=== PATIENT | female | born 1995 | race Caucasian/White ===

== ENCOUNTER 2019-10-22 07:49 | Day surgery (SDC) | payer BC, SELFPAY ==
[2019-10-22 08:33] VITALS: BP 125/70; PULSE 71; RESP 16; TEMP 36.7; O2SAT 98; BMI 27.5
[2019-10-22 08:39] LABS: Internal QC Validated? YES +Cl - CLEAR BKGD; Pregnancy, Urine Negative Negative
[2019-10-22] MEDS: Lactated Ringers 1,000 ML 100 ML IV (08:42)
[2019-10-22 08:47] LABS: Anion Gap 5 (5-15); BUN 14 mg/dL (7-18); BUN/Creat Ratio 16.8 RATIO (10-20); Calcium,Total 8.9 mg/dL (8.5-10.1); Chloride 108 mmol/L (98-107); Creatinine, Serum 0.84 mg/dL (0.55-1.02); EST Glomerular Filtration Rate 89 mL/min (>60); Est Glom Filt Rate - Afr Amer 108 mL/min (>60); Estimated Creatinine Clearance 81.68 ml/min; Glucose 92 mg/dL (74-106); Potassium 3.8 mmol/L (3.5-5.1); Sodium Level 138 mmol/L (136-145)
--- NOTE | 2019-10-22 09:10 | TONS_PTH ---
PATIENT: SIDDHARTH KRUEGER LOC: [facility] [place] U#:[id number] AGE/SX: 24/F ROOM: RE10/22/[address]: Dr. Beau Lr MD : 1995 BED: DIS: 10/22/2019 SPEC #: [id number] RECD: 10/22/19 11:49 STATUS: SHANIQUE MARTÍN #: [id number] CARRILLO: 10/22/19 09:[address]: Beau Lr DEPT: SURGICAL PATHOLOGY RECD BY: Vivek Wallis ENTERED: 10/22/19 12:35 SP TYPE: TONSILS OTHR DR: Dr. Alice Maxwell DO Tissues: A - Tonsil, NOS B - Tonsil, NOS Procedures: Surgery Specimen Level III HEADER OPERATION: Tonsillectomy PRE-OP DIAGNOSIS: Recurrent tonsillitis TISSUE SUBMITTED: A. Right tonsil, B. Left tonsil MICROSCOPIC DIAGNOSIS A. Right tonsil, tonsillectomy: Benign lymphoid follicular hyperplasia. B. Left tonsil, tonsillectomy: Benign lymphoid follicular hyperplasia. AM:juan 10/25/19 MICROSCOPIC DESCRIPTION Slides are reviewed. GROSS DESCRIPTION A. Received is one container labeled with the patient's name and designated right tonsil is one tonsil that weighs 2.4 gm. The right tonsil measures 2.5 x 1 x 0.9 cm. Shooter Helper section is submitted in 1 cassette. B. Received is one container labeled with the patient's name and designated left tonsil is one tonsil that weighs 2.4 gm. The left tonsil measures 3 x 1.5 x 1.2 cm. Shooter Helper section is submitted in one cassette./AM:juan 10/22/19 TC: 5 CPT: 84032 x2
[2019-10-22] MEDS: Bacitracin 500 UNITS/GM PACKET (09:50)
--- NOTE | 2019-10-22 09:55 | OP.PCM_ITS ---
Problem List (1) Chronic tonsillitis Status: Chronic Report of Operation Date of Procedure: 10/22/19 Pre-Operative Diagnosis: Chronic tonsillitis Post-Operative Diagnosis: Same Surgery/Procedure Performed:: Tonsillectomy Description of Surgical Findings:: Jayson is a 24-year-old female completes of chronic and recurrent sore throats with cryptic tonsillar hypertrophy. The above procedure was offered hopes of alleviation of these complaints and she was eager to proceed. The risks, alternatives, potential complications, and benefits were discussed at length and any questions answered to the patient and/or caregiver's satisfaction. Witnessed informed consent was obtained in the office, and the patient and/or caregiver was agreeable to proceed. Procedure went as follows: The patient was identified in the preoperative holding, brought to the operating room, was placed under general anesthesia and intubated. When appropriate anesthesia was obtained, the head of bed was rotated and the patient prepped and draped in usual sterile fashion. A Britney Angelo mouthgag was then placed and the patient suspended from the [place] stand. The oral cavity was examined and noted to have 2+ cryptic tonsillar hypertrophy. Beginning on the right side, the right tonsil was then grasped with a curved tenaculum and dissected from the underlying capsule with monopolar cautery. This was then sent as specimen. Similar procedure was then completed on the contralateral side. The oral and nasal cavities were then irrigated with saline solution. An NG tube was then placed to decompress the stomach. The patient was then returned to anesthesia, revived and extubated having tolerated the procedure well. Type of Anesthesia:: General Anesthesiologist: Dillan Boucher Special Medications: none Specimen's removed: bilateral tonsils Drains: none Estimated Blood Loss (mL): 0 mL Fluids Replaced: 300 mL Grafts/Implants Used: none - Complications none - Admit VTE Documentation VTE Present on Admission: No VTE Mechan Device Prophylaxis: SCD's VTE Pharm Prophylaxis ordered?: No
--- NOTE | 2019-10-22 09:58 | DCINST_ITS ---
Discharge Diet: No Restrictions Discharge Activity: Return to Normal Activity Call your doctor if your incision/area has: Sudden Increased Bleeding Call your doctor if you observe: Fever of 101 or Higher, Uncontrolled pain Allergies/Adverse Reactions: Allergies No Known Allergies Allergy (Verified 10/22/19 08:29) Medications to take at Discharge Norgestimate-Ethinyl Estradiol [Estarylla 0.25-0.035 mg Tablet] 10/22/19 Primary Care Physician: Alice Maxwell DO [Primary Care Provider] - Test Results: Test results from this visit will be discussed in further detail at your follow- up appointment, if applicable. Please Follow Up With: Beau Lr MD When: 2 weeks
[2019-10-22 10:07] VITALS: BP 107/75; BP 125/70; PULSE 110; RESP 16; TEMP 36.2; O2SAT 98
[2019-10-22 10:15] VITALS: BP 119/71; BP 125/70; PULSE 110; RESP 16; O2SAT 98
[2019-10-22 10:30] VITALS: BP 115/68; BP 125/70; PULSE 104; RESP 16; O2SAT 100
[2019-10-22 10:33] VITALS: BP 113/69; BP 125/70; PULSE 73; RESP 16; TEMP 36.2; O2SAT 74
[2019-10-22] MEDS: Acetaminophen 160 MG/5 ML UDC 500 MG PO (11:08)
[2019-10-22 13:57] VITALS: BP 125/70; BP 143/66; PULSE 75; RESP 16; TEMP 36.2; O2SAT 99
--- NOTE | 2019-10-22 14:02 | SUR.PHASEII ---
Pt requested to be discharged. Reviewed with pt reasoning for her 4hr post op stay. Pt verbalized understanding and still requested to be discharged. Pt and mother acknowledged receipt of discharge instructions. Pt discharged.
== END 2019-10-22 14:08 | disposition home or self-care (01) ==
LOC: SDC 07:50 → AC 07:52
PROVIDERS: Family Provider Internal Medicine; PCP Internal Medicine; Referring Provider Otolaryngology; Visit Provider Otolaryngology
PROC: (CPT 42826; principal; 2019-10-22 08:55)
DX: J35.01 Chronic tonsillitis (principal); J45.909 Unspecified asthma, uncomplicated; F17.290 Nicotine dependence, other tobacco product, uncomplicated
CPT/HCPCS: 42826; 80048; 81025; 88304; J7120; J2405

== ENCOUNTER 2025-09-19 11:28 | Inpatient (IN) | payer MEDICAID, SELFPAY ==
[2025-09-19] VITALS (50 sets, daily range): BP systolic 99–158; BP diastolic 50–103; PULSE 56–128; RESP 16–18; TEMP 36.4–37.4; O2SAT 92–100; BMI 27.8
[2025-09-19 11:57] LABS: Hematocrit 43.5 % (37-47); Hemoglobin 15.5 g/dL (12.0-15.0); Immature Granulocytes Count 0.040 X10^3/uL (0.0-0.0); Mean Corp Hgb Conc 35.6 g/dL (32-36); Mean Corpuscular Volume 83.0 fL (81-99); Mean Platelet Vol. 12.7 fl (6.2-12.0); NRBC Flagged by Analyzer 0 % (0-5); Platelet Count 190 K/mm3 (150-450); RBC Distribution Width CV 12.6 % (11.6-14.6); RBC Distribution Width SD 38.0 fl (35.1-43.9); Red Blood Count 5.24 M/mm3 (4.2-5.4); White Blood Count 12.3 K/mm3 (4.4-11.0)
[2025-09-19] MEDS: Lactated Ringers 1,000 ML 999 ML IV (12:03)
[2025-09-19 13:06] LABS: Syphilis Antibodies Nonreactive (Nonreactive)
--- NOTE | 2025-09-19 13:44 | PCM.HP.OB ---
HPI - General General Date of Admission: 09/19/25 HPI Narrative SIDDHARTH KRUEGER, is a 30 F who presents [ at 38w6d in active labor] [facility] Medical History no medical history Home Medications ?Medication ?Instructions ?Recorded ?Last Taken ?Type albuterol sulfate 90 mcg/actuation 1 inh inhalation PRN 09/19/25 Unknown History breath activated powder inhaler aspirin 81 mg tablet,delayed 81 mg PO DAILY 09/19/25 09/18/25 20:00 History release (Adult Low Dose Aspirin) 81 mg bupropion HCl 300 mg 24 hr tablet, 300 mg PO DAILY 09/19/25 09/18/25 20:00 History extended release (Wellbutrin XL) 300 mg vit no.95-ferrous 1 tab PO DAILY 09/19/25 09/18/25 20:00 History fumarate 28 mg-folic acid 800 mcg 1 TAB tablet () Allergy/AdvReac Type Severity Reaction Status Date / Time No Known Allergies Allergy Verified 09/19/25 08:09 Family History no significant family his Surgical History no surgical history Social History Smoking Status: Never smoker NST FHR Rate Baby A Baseline: 135 Variability:: Moderate Accelerations:: 15 x 15 Decelerations:: None FHR Category:: Category I Uterine Activity:: Every 3-5 minutes ROS Constitutional Constitutional: Reports systems reviewed and no addt'l complaints, except as documented; Denies headache(s) Eyes Eyes: Denies acute decrease in peripheral vision, blurry vision or change in vision ENT HEENT: Reports systems reviewed and no addt'l complaints, except as documented Cardiovascular Cardiovascular: Denies chest pain or dizziness Respiratory/Chest Respiratory/Chest: Denies cough, dyspnea, dyspnea on exertion, shortness of breath at rest or shortness of breath with exertion Gastrointestinal Gastrointestinal: Denies abdominal pain, diarrhea, nausea or vomiting Genitourinary Genitourinary: Denies abdominal discomfort Musculoskeletal Musculoskeletal: Denies limited range of motion Integumentary Integumentary: Reports systems reviewed and no addt'l complaints, except as documented Neurologic Neurologic: Reports systems reviewed and no addt'l complaints, except as documented Psychiatric Psychiatric: Reports systems reviewed and no addt'l complaints, except as documented Endocrine Endocrinology: Reports systems reviewed and no addt'l complaints, except as documented Hematologic/Lymphatic Hematologic/Lymphatic: Reports systems reviewed and no addt'l complaints, except as documented Allergic/Immunologic Allergic/Immunologic: Reports systems reviewed and no addt'l complaints, except as documented Vital Signs Vital Signs Vital Signs: 09/19/25 08:08 09/19/25 08:08 09/19/25 08:08 Temperature Temperature Source Temporal Pulse Rate 98 Respiratory Rate Blood Pressure 137/87 H BP Systolic 137 BP Diastolic 87 Pulse Ox 09/19/25 08:08 09/19/25 08:08 09/19/25 08:09 Temperature 98.1 F Temperature Source Pulse Rate 94 Respiratory Rate 16 Blood Pressure BP Systolic BP Diastolic Pulse Ox 09/19/25 08:09 09/19/25 12:38 09/19/25 12:38 Temperature Temperature Source Pulse Rate 116 H Respiratory Rate Blood Pressure 129/83 H BP Systolic 129 BP Diastolic 83 Pulse Ox 95 09/19/25 12:41 09/19/25 12:41 09/19/25 12:46 Temperature Temperature Source Pulse Rate 86 77 Respiratory Rate Blood Pressure BP Systolic BP Diastolic Pulse Ox 98 09/19/25 12:46 09/19/25 12:48 09/19/25 12:48 Temperature Temperature Source Pulse Rate 105 H Respiratory Rate Blood Pressure 121/83 H BP Systolic 121 BP Diastolic 83 Pulse Ox 99 09/19/25 12:48 09/19/25 12:51 09/19/25 12:51 Temperature Temperature Source Pulse Rate 78 Respiratory Rate 18 Blood Pressure BP Systolic BP Diastolic Pulse Ox 99 09/19/25 12:53 09/19/25 12:53 09/19/25 12:53 Temperature Temperature Source Pulse Rate 56 L Respiratory Rate Blood Pressure 108/75 BP Systolic 108 BP Diastolic 75 Pulse Ox 92 09/19/25 12:56 09/19/25 12:56 09/19/25 13:01 Temperature Temperature Source Pulse Rate 101 H 103 H Respiratory Rate Blood Pressure BP Systolic BP Diastolic Pulse Ox 99 09/19/25 13:01 09/19/25 13:06 09/19/25 13:06 Temperature Temperature Source Pulse Rate 83 Respiratory Rate Blood Pressure BP Systolic BP Diastolic Pulse Ox 98 96 09/19/25 13:11 09/19/25 13:11 Temperature Temperature Source Pulse Rate 90 Respiratory Rate Blood Pressure BP Systolic BP Diastolic Pulse Ox 96 Weight Weight: 152 lb 1.903 oz Body Mass Index (BMI) 27.8 Physical Exam Const alert and oriented x3 General Appearance: cooperative Orientation / Consciousness: awake, oriented to person, oriented to place and oriented to time Exam Limitations: no limitations HEENT normocephalic Head and Scalp: normal to inspection, normocephalic and atraumatic Face and Sinus: normal facial exam Eyes General Eye: normal appearance of both eyes Neck full ROM Chest Chest: symmetrical chest wall rise Resp normal respiratory effort and normal air movement Auscultation: clear to auscultation bilaterally Cardio regular rate, regular rhythm, S1 normal heart sound, S2 normal heart sound, no murmurs, no rub, no gallops and no clicks GI normal to inspection, nondistended, normoactive bowel sounds and non-tender appearance of the vagina normal Narrative: AROM clear fluid Bladder / Kidney Exam: no CVA tenderness Manual OB Exam: estimated gestational size appropriate, presentation cephalic, dilated 6, effaced 80 and station -1 Back/Spine normal ROM Extremity normal to inspection and full ROM Skin no rashes or lesions noted Neuro oriented x3, CN's II-XII intact bilaterally and moves all extremities Sensorium / Orientation: awake, alert and oriented to person Motor Exam: clonus absent Deep Tendon Reflexes: Rt Patellar (L4): 2+ and Lt Patellar (L4): 2+ Labs Labs Labs: Blood Type O POSITIVE Antibody Screen NEGATIVE Hct, (37-47) 43.5 % Hgb, (12.0-15.0) 15.5 g/dL H Syphilis Total Ab, (Nonreactive) Nonreactive Assessment & Plan (1) Active labor: (2) 38 weeks gestation of : PLAN: Plan 1) Admit to labor and delivery 2) Routine labs 3) Continuous EFM 4) Pain management upon request 5) Dr. Magdaleno collaborative physician and notified of patient status, above assessment, and plan.
[2025-09-19] MEDS: Lactated Ringers 1,000 ML 200 ML IV ×3 (13:45→17:11)
[2025-09-19] MEDS: fentaNYL-bupivacaine (epidural) 100 ML BAG EPIDURAL (15:19)
[2025-09-19] MEDS: Oxytocin 15 Units/NS 250ml 15 UNITS/250 ML IV.SOLN 83 UNITS IV (17:55)
--- NOTE | 2025-09-19 18:22 | EX.PCM.OBVAG ---
Maternal Data Information MARITZA Calculator Estimated Delivery Date Method Current WG Current Estimate 09/27/25 Manual 38w 6d Vaginal Delivery Maternal Presentation Maternal Presentation: Active Labor Vaginal Delivery Information Procedure Performed: Spontaneous Vaginal Delivery Surgeon/Practitioner: Antonella Barajas Date of Procedure: 09/19/25 Pre-Procedure Diagnosis: Active labor at term Post-Procedure Diagnosis: , labial laceration Type of anesthesia: Epidural Estimated Blood Loss: 300ml Time of Delivery: 17:44 Findings Description of procedure: Progressed to complete with urge to push. Epidural for pain management. of viable male over first degree labial laceration . APGARS 8,9 respectively. Infant head delivered with body immediately forthcoming. Placed on maternal abdomen, strong cry. Mouth and nares suctioned for secretions. Pitocin started for active 3rd stage management. Cord doubly clamped and cut by patient after pulsations ceased, delayed cord clamping. Placenta delivered intact via adams, 3 vessel cord intact. Perineum inspected and revealed right labial laceration. Repaired with 3.0 vicryl rapide and epidural. Fundus firm and hemostasis achieved. EBL 300ml. Vaginal sweep completed by me, sponge and instrument correct. Mom and baby stable, planning to breastfeed. Family bonding well. Dr. Green notified of delivery. Presentation: Vertex Amniotic Membrane Rupture Type: Artificial Amniotic Fluid Description: Clear Placental Delivery Description: Spontaneous Placenta Disposition: [facility] Specimen collected: No Cord Vessel Description: 3 Vessels Cord Entanglement: Around neck x 1, loose Nuchal Cord Compression: Without compression Cord Gases: ABG (unable to collect) and VBG Infant A Gender: Male (1 minute): 8 (5 minute): 9 Delayed Cord Clamping: Yes Windmill Mechanic alligator hunter: No Post Vaginal Deli Medications given after delivery: IV Pitocin and IM Pitocin Episiotomy Description: None Laceration: 1st degree (Right labial) Complication Complications: No
[2025-09-20 05:33] VITALS: BP 126/72; PULSE 81; RESP 16; TEMP 36.6; O2SAT 99
[2025-09-20 06:04] LABS: Hematocrit 37.9 % (37-47); Hemoglobin 13.1 g/dL (12.0-15.0); Immature Granulocytes Count 0.060 X10^3/uL (0.0-0.0); Mean Corp Hgb Conc 34.6 g/dL (32-36); Mean Corpuscular Volume 84.8 fL (81-99); Mean Platelet Vol. 12.1 fl (6.2-12.0); NRBC Flagged by Analyzer 0 % (0-5); Platelet Count 169 K/mm3 (150-450); RBC Distribution Width CV 12.6 % (11.6-14.6); RBC Distribution Width SD 38.7 fl (35.1-43.9); Red Blood Count 4.47 M/mm3 (4.2-5.4); White Blood Count 15.5 K/mm3 (4.4-11.0)
[2025-09-20 07:45] VITALS: BP 127/74; PULSE 86; RESP 16; TEMP 36.3; O2SAT 97
--- NOTE | 2025-09-20 08:47 | PCM.PN.OB ---
Subjective Subjective Denies complaints Objective Data Objective Data Vital Signs: Vital Signs Temp Pulse Resp BP Pulse Ox O2 Del Method 97.9 F 81 16 126/72 H 99 Room Air 09/20/25 05:33 09/20/25 05:33 09/20/25 05:33 09/20/25 05:33 09/20/25 05:33 09/20/25 05:33 Oxygen Delivery Method Room Air Weight: 152 lb 1.903 oz Body Mass Index (BMI) 27.8 Intake & Output: Intake and Output for Last 24 Hours 09/18/25 09/19/25 09/20/25 22:59 23:59 23:59 Intake Total 4250.00 / 4250.00 Output Total 1100 / 1100 Balance 3150.00 / 3150.00 Lab / Micro Data 09/20/25 05:44 Labs: Laboratory Results - last 24 hr 09/19/25 11:40: WBC 12.3 H, RBC 5.24, Hgb 15.5 H, Hct 43.5, MCV 83.0, MCH 29.6, MCHC 35.6, RDW Std Deviation 38.0, RDW Coeff of Hector 12.6, Plt Count 190, MPV 12.7 H, Immature Gran % (Auto) 0.300, Neut % (Auto) 75.2 H, Lymph % (Auto) 18.4 L, Hancock % (Auto) 5.0, Eos % (Auto) 0.9, Baso % (Auto) 0.2, Absolute Neuts (auto) 9.3 H, Absolute Lymphs (auto) 2.27, Nucleated RBC % 0, Syphilis Total Ab Nonreactive, Blood Type Cancelled, Antibody Screen Cancelled 09/19/25 12:15: Blood Type O POSITIVE, Antibody Screen NEGATIVE 09/20/25 05:44: WBC 15.5 H, RBC 4.47, Hgb 13.1, Hct 37.9, MCV 84.8, MCH 29.3, MCHC 34.6, RDW Std Deviation 38.7, RDW Coeff of Hector 12.6, Plt Count 169, MPV 12.1 H, Immature Gran % (Auto) 0.400, Neut % (Auto) 75.7 H, Lymph % (Auto) 17.6 L, Hancock % (Auto) 5.7, Eos % (Auto) 0.3, Baso % (Auto) 0.3, Absolute Neuts (auto) 11.8 H, Absolute Lymphs (auto) 2.73, Nucleated RBC % 0 Assessment & Plan (1) Vaginal delivery: COMMENT: PPD#1 PLAN: Plan Routine PP care
[2025-09-20 13:10] VITALS: BP 122/79; PULSE 90; RESP 16; TEMP 36.3; O2SAT 96
[2025-09-20 16:30] VITALS: BP 127/83; PULSE 85; RESP 16; TEMP 36.6; O2SAT 97
[2025-09-20 20:00] VITALS: BP 133/86; PULSE 86; RESP 16; TEMP 36.2; O2SAT 96
[2025-09-21 02:00] VITALS: BP 120/73; PULSE 81; RESP 16; TEMP 36.2; O2SAT 97
[2025-09-21 08:05] VITALS: BP 128/81; PULSE 71; RESP 17; TEMP 36.3
[2025-09-21 10:45] VITALS: BP 127/82; PULSE 68; RESP 17; TEMP 36.4
[2025-09-21 14:38] VITALS: BP 110/86; PULSE 75; RESP 16; TEMP 36.1
[2025-09-21 20:00] VITALS: BP 137/87; PULSE 88; RESP 16; TEMP 36.4; O2SAT 98
[2025-09-22 01:50] VITALS: BP 116/74; PULSE 77; RESP 16; TEMP 36.1; O2SAT 96
--- NOTE | 2025-09-22 06:59 | PCM.DC.SUM ---
Providers Date of Admission: 09/19/25 Primary Care Physician: Dr. Alice Maxwell DO Reason For Visit: VAGINAL Diagnosis Discharge Diagnosis (1) Vaginal delivery: Status: Acute Code(s): O80 - Encounter for full-term uncomplicated delivery Medications at Discharge Home Medications albuterol sulfate 90 mcg/actuation breath activated powder inhaler 1 inh inhalation PRN 09/19/25 bupropion HCl 300 mg 24 hr tablet, extended release (Wellbutrin XL) 300 mg PO DAILY 09/19/25 vit no.95-ferrous fumarate 28 mg-folic acid 800 mcg tablet () 1 tab PO DAILY 09/19/25 acetaminophen 500 mg tablet 1,000 mg (2 x 500 mg) PO Q6H PRN PRN Pain 1-10 Or Fever #0 tabs 09/21/25 ibuprofen 600 mg tablet 600 mg PO Q6H PRN PRN Pain Score 1-10 #0 tabs 09/21/25 Hospital Course Operations None Procedures None Summary of Care Provided Minutes Spent on Discharge: 15 Hospital Course: Patient had vaginal delivery. Hospital course was uneventful. Physical Exam Narrative Patient seen at bedside. Denies pain. Ambulating and voiding without difficulty. Lochia decreased. Desires discharge home today. Const alert and oriented x3 General Appearance: Negative for in distress HEENT normocephalic Eyes General Eye: normal appearance of both eyes Neck General: normal visual inspection Chest Chest: symmetrical chest wall rise Resp normal respiratory effort and normal air movement Effort and Inspection: symmetric chest movement; Negative for tachypneic Auscultation: clear to auscultation bilaterally Cardio regular rate and regular rhythm Peripheral Pulses: pulses 2+ throughout GI normal to inspection, nondistended, normoactive bowel sounds Narrative: Ice to perineum OB / External & Speculum: vaginal bleeding and other Lochia decreasing Uterus Palpation: uterus fundus firm (Below U) Extremity normal to inspection, full ROM and normal capillary refill Skin no rashes or lesions noted Neuro oriented x3, CN's II-XII intact bilaterally and gait normal Psych mental status grossly normal, thought process normal and activity/motor behavior normal Weight / BMI Weight Weight: 152 lb 1.903 oz Body Mass Index (BMI) 27.8 ABG / Lab / Microbiology Data 09/20/25 05:44 D/C Instructions Discharge Activity: Return to Normal Activity, No Restrictions, May Drive, May Shower and May Take a Tub Bath (Warm water only. No bath salts, soaps, bubbles) May resume sexual activity in: 6-8 weeks Weight Bearing Status: Weight bearing as tolerated Call your doctor if you observe: Fever of 101 or Higher, Inability to urinate, Using more than 1 pad per hour, Shortness of breath, Dizziness, Chest pain, Calf discomfort and Uncontrolled pain DC O2, CPAP, BIPAP Needs Home O2 Discharge instructions: No Please Follow Up With: [facility] Jose HUTCHISON When: 2 weeks in office or virtual Meaningful Use Info Meaningful Use Meaningful Use Diagnoses (Choose all that apply): None applicable Discharge Plan Admission Admit Date/Time: 09/19/25 11:28 Primary Reason for Your Visit: Labor and delivery Attending Provider: Antonella Barajas Primary Care Provider: Alice Maxwell Discharge Orders/Prescriptions Prescriptions: New acetaminophen 500 mg Tablet 1,000 mg PO Q6H PRN PRN (Reason: Pain 1-10 Or Fever) Qty: 0 0RF ibuprofen 600 mg Tablet 600 mg PO Q6H PRN PRN (Reason: Pain Score 1-10) Qty: 0 0RF Continued PNV no.95-ferrous fumarate-FA [] 28 mg iron- 800 mcg tablet 1 tab PO DAILY bupropion HCl [Wellbutrin XL] 300 mg tablet extended release 24 hr 300 mg PO DAILY albuterol sulfate 90 mcg/actuation aerosol powdr breath activated 1 inh inhalation PRN Discontinued aspirin [Adult Low Dose Aspirin] 81 mg tablet,delayed release (DR/EC) 81 mg PO DAILY Referrals / Follow Up: Alice Maxwell DO [Primary Care Provider, Internal Medicine] Disposition Disposition (needs filled in before D/C Order can be placed): Home, Self Care
[2025-09-22 07:57] VITALS: BP 129/77; PULSE 79; RESP 16; TEMP 36.2
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
--- NOTE | 2025-09-27 13:51 | NURSING ---
F/up call attempted, no ans, LVM.
== END 2025-09-22 09:15 | disposition home or self-care (01) | DRG 560 ==
LOC: WPOUT 12:12 → WP 12:12
PROVIDERS: Admitting Provider Advanced Practice Midwife; PCP Internal Medicine; Referring Provider Advanced Practice Midwife; Visit Provider Advanced Practice Midwife
DX: O69.81X0 Labor and delivery complicated by cord around neck, without compression, not applicable or unspecified (principal); Z37.0 Single live birth; O70.0 First degree perineal laceration during delivery; Z3A.38 38 weeks gestation of pregnancy
CPT/HCPCS: 59025; 59050; 85025; 86780; 86850; 86900; 86901; 99221; G0378